=== PATIENT | male | born 1975 | race African-American/Black ===

== ENCOUNTER 2022-08-27 00:06 | Emergency (ER) | payer MEDICAID ==
[~2022-08-27] VITALS: Ht 172.7 cm; Wt 79.0 kg
[2022-08-27 00:46] VITALS: BP 165/102
== END 2022-08-27 02:15 | disposition left against medical advice (07) ==
LOC: ER 00:06
DX: Z53.21 Procedure and treatment not carried out due to patient leaving prior to being seen by health care provider (principal)